=== PATIENT | female | born 1945 | race Caucasian/White ===

== ENCOUNTER 2020-08-16 17:21 | Emergency (ER) | payer MEDICARE, OTHER ==
[~2020-08-16] VITALS: Ht 152.4 cm; Wt 50.8 kg
[~2020-08-16 17:21] MED LIST: AMLO10TA7 PO; CARV6.252 PO; CLON0.1T PO; COLL30OI TP; DIGO125T PO; FURO40TA5 PO; GABA-532 PO; LEVO25TA7 PO; LOPE-195 PO; LORA-259 PO; MEMA5TAB42 PO; NAPR-1009 PO; OMEP20CA15 PO; STAR1POW; TRIAMCINOLONE 0.1%; [UNRECOGNIZED DRUG - CODE] SL
[2020-08-16] MEDS ORDERED: ONDANSETRON HCL/PF 4 MG/2 ML VIAL IVP ONE (17:30)
[2020-08-16] MEDS ORDERED: IV NS 0.9% 500 ML BAG IV ONE (17:30)
[2020-08-16] MEDS ORDERED: ONDANSETRON HCL/PF 4 MG/2 ML VIAL ONE (17:36)
--- NOTE | 2020-08-16 17:50 | NUR ---
Patiet awake alert to name hook to monitor ,gown ,obtained blood draw obtained and send to lab .
[2020-08-16 17:53] LABS: BASOPHILS % (AUTO) 0.4 % (0.0-2.0); EOSINOPHILS % (AUTO) 3.9 % (0.0-6.0); HEMATOCRIT 33 % (33-45); LYMPHOCYTES # (AUTO) 0.9 /CMM (0.8-4.8); LYMPHOCYTES % (AUTO) 15.5 % (20.0-44.0); MEAN CORPUSCULAR HGB CONC 34 g/dl (31.0-36.0); MEAN CORPUSCULAR VOLUME 95 fL (82-100); MONOCYTES # (AUTO) 0.3 /CMM (0.1-1.30); MONOCYTES % (AUTO) 5.9 % (2.0-12.0); NEUTROPHILS # (AUTO) 4.4 /CMM (1.8-8.9); NEUTROPHILS % (AUTO) 74.3 % (43.0-81.0); PLATELET COUNT (AUTO) 245 /CMM (150-450); RED BLOOD CELL COUNT(AUTO) 3.45 MIL/uL (4.0-5.2); WHITE BLOOD COUNT (AUTO) 5.9 K/uL (4.3-11.0)
--- NOTE | 2020-08-16 18:09 | NUR ---
Inserted quijano cath observed research and development technician urine obtained and send to lab assisted by Brock Schafer CNA .
[2020-08-16 18:16] LABS: ALANINE AMINOTRANSFERASE 17 U/L (12-78); ALBUMIN 2.6 g/dL (3.4-5.0); ALKALINE PHOSPHATASE 137 U/L (46-116); ASPARTATE AMINOTRANSFERASE 16 U/L (15-37); BILIRUBIN,DIRECT 0.1 mg/dL (0.0-0.2); BILIRUBIN,TOTAL 0.4 mg/dL (0.2-1.0); CALCIUM, SERUM 8.3 mg/dL (8.5-10.1); CARBON DIOXIDE 28 mmol/L (21-32); CHLORIDE 94 mmol/L (98-107); CREATININE 1.4 mg/dL (0.6-1.3); GLUCOSE 288 mg/dL (74-106); LIPASE 32 U/L (73-393); POTASSIUM 5.2 mmol/L (3.5-5.1); SODIUM SERUM 127 mmol/L (136-145); UREA NITROGEN, BLOOD 27 mg/dL (7-18)
[2020-08-16 18:47] LABS: APPEARANCE,URINE TURBID (CLEAR); COLOR,URINE YELLOW (YELLOW)
[2020-08-16 18:48] LABS: BILIRUBIN,URINE NEGATIVE (NEGATIVE); BLOOD, URINE 3+ Ery/uL (NEGATIVE); PROTEIN,URINE 1+ mg/dl (NEGATIVE); UGLUCOSE NEGATIVE (NEGATIVE)
[2020-08-16 18:49] LABS: KETONES,URINE NEGATIVE (NEGATIVE); LEUKOCYTE ESTERASE ,URINE 2+ (NEGATIVE); NITRITE, URINE NEGATIVE (NEGATIVE); UROBILINOGEN,URINE 0.2 EU/dL (0.2)
[2020-08-16 18:51] LABS: BACTERIA,URINE 4+ /HPF (None Seen); RBC,URINE 21-50 /HPF (0-2); SQUAMOUS EPITHELIAL CELL,UR 0-2 /HPF (None Seen); WBC,URINE TOO NUMEROUS TO COUN /HPF (0-3)
[2020-08-16] MEDS ORDERED: INSULIN REGULAR, HUMAN 100 UNIT/ML 10 ML VIAL ONE (18:59)
[2020-08-16] MEDS ORDERED: INSULIN REGULAR, HUMAN 100 UNIT/ML 10 ML VIAL IV ONE (19:00)
--- NOTE | 2020-08-16 19:07 | NUR ---
Transfer care report to Arley Doe RN .
--- NOTE | 2020-08-16 19:10 | NUR ---
DR. MARCELO SPEAKING TO DR. ROMAN REGARDING PLAN OF CARE.
--- NOTE | 2020-08-16 19:12 | NUR ---
PER DR. ROE MONTES TO TRANSFER BACK TO FACILITY
[2020-08-16] MEDS ORDERED: CEFTRIAXONE 1GM BAG (ER ONLY) 50 ML IV ONE (19:14)
--- NOTE | 2020-08-16 19:16 | NUR ---
SPOKE TO [facility] FROM [facility]. ETA FOR BLS TRANSPORT 45 MINS
--- NOTE | 2020-08-16 19:21 | NUR ---
SPOKE TO EMMA STPEHENSON PT CLEARED FOR DISCHARGE AND DR. ROE ONEAL
[2020-08-16] MEDS ORDERED: CEFTRIAXONE 1GM BAG (ER ONLY) 1 GM/50 ML PIGGYBACK IV ONE (19:30)
[2020-08-16 20:17] VITALS: BP 130/71
--- NOTE | 2020-08-16 20:17 | NUR ---
REPORT GIVEN TO THE TRANSPORT TEAM FOR [facility]. AND TRANSFERRING RESPONSIBILITES.
--- NOTE | 2020-08-16 20:17 | NUR ---
IV removed. Catheter intact and site benign. Pressure and 4x4 applied to site. No bleeding noted.
== END 2020-08-16 20:18 | disposition home or self-care (01) ==
LOC: ER 17:25
DX: R11.10 Vomiting, unspecified (principal); N39.0 Urinary tract infection, site not specified; E11.65 Type 2 diabetes mellitus with hyperglycemia; I11.0 Hypertensive heart disease with heart failure; I50.9 Heart failure, unspecified; F03.90 Unspecified dementia, unspecified severity, without behavioral disturbance, psychotic disturbance, mood disturbance, and anxiety; E11.40 Type 2 diabetes mellitus with diabetic neuropathy, unspecified; F41.9 Anxiety disorder, unspecified; G93.41 Metabolic encephalopathy; Z88.8 Allergy status to other drugs, medicaments and biological substances; Z79.899 Other long term (current) drug therapy; Z95.0 Presence of cardiac pacemaker
CPT/HCPCS: 36415; 51702; 71045; 74176; 80048; 80076; 81001; 82962 ×2; 83690; 85025; 87086; 96365; 96375; 99285; J0696; J1815; J2405; J7030; 81000-TC